=== PATIENT | female | born 1965 | race Caucasian/White ===

== ENCOUNTER 2025-03-26 08:31 | Inpatient (IN) | payer OTHER, SELFPAY ==
[2025-03-26 08:49] VITALS: BP 142/92
[2025-03-26 10:40] LABS: Hematocrit 40.1 % (37.0-47.0); Hemoglobin 13.0 g/dL (12.0-16.0); Mean Corp Hgb Conc. 32.4 g/dL (33.0-37.0); Mean Corpuscular Volume 92.0 fL (81.0-99.0); Nucleated Red Blood Cells % 0 %; Platelet Count 155 10^3/uL (130-400); Red Cell Dist. Width 12.6 % (11.5-14.5)
[2025-03-26 10:49] LABS: ALT (SGPT) 34 U/L (0-35); AST (SGOT) 31 U/L (14-36); Albumin 4.5 g/dl (3.5-5.0); Alkaline Phosphatase 48 U/L (38-126); Blood Urea Nitrogen 15 mg/dl (7-17); Calcium 9.5 mg/dl (8.4-10.2); Carbon Dioxide 25 mmol/L (22-30); Chloride 104 mmol/L (98-107); Glucose 217 mg/dl (70-99); Magnesium 1.7 mg/dl (1.6-2.3); Potassium 4.5 mmol/L (3.5-5.1); Sodium 139 mmol/L (135-145); Total Protein 8.0 g/dl (6.3-8.2); eGFR > 60.00
[2025-03-26 10:55] VITALS: BP 137/83
--- NOTE | 2025-03-26 11:10 | W.CARD.TIKOS ---
Initiate Tikosyn
-
I verify that the patient has not taken any verapamil (Isoptin/Calan), ketoconazole (Nizoral), cimetidine (Tagamet), trimethoprim (Trimpex), trimethoprim/sulfamethoxazole (Bactrim), megesterol (Megace), prochlorperazine (Compazine),
hydrochlorothiazide (HCTZ), dolutegravir (Tivicay) or any Class I or Class III anti-arrhythmic within the last three days
AND
I verify that the patient has not taken amiodarone within the last THREE months, or that the patient's amiodarone plasma concentration is <0.3 mcg/mL.
Creatinine 0.5 mg/dL (0.6-1.0) L 03/26/25 10:31
CrCl 236
I have assessed the baseline QTc interval (using QT for heart rate less than 60 bpm) and deemed the patient is appropriate for Dofetilide therapy. I understand that Tikosyn is contraindicated if the QTc is >440msec (500msec in patients with
ventricular conduction abnormalities).
Baseline QTc (in msec): 464
QTc interval is greater than 440msec without conduction abnormality OR greater than 500msec with a conduction abnormality, but acceptable to proceed per Cardiology attending.
Reason for Administration with Prolonged QTc: Other Atrial Arrhythmia
Ordering Physician: Ronnie Parks
--- NOTE | 2025-03-26 11:12 | W.PN.CARDCBS ---
Addendum entered and electronically signed by El Cerrato MD 03/26/25 19:16:
Pleasant 59-year-old woman admitted for dofetilide loading for persistent atrial fibrillation. She failed cardioversion in August 2024
PMH: Type 2 diabetes, hypertension, obesity, mild to moderate mitral regurgitation
Outpatient meds: Apixaban 5 mg twice daily, atorvastatin 20 mg a day, Zyrtec, doxycycline, glipizide, lisinopril, metformin, metoprolol ER 50 twice daily, semaglutide, Hydrochlorothiazide and diltiazem stopped prior to admission
Rest of history as per outpatient record and as below
137/83, pulse 113 respiratory rate 18, head neck exam unremarkable, lungs clear, irregular rate and rhythm without obvious murmurs JVD okay abdomen obese extremities with chronic edema
Hemoglobin 13, BUN and creatinine 15 and 0.5
ECG: QTc 491, underlying atrial fibrillation/flutter
Impression:
Persistent atrial fibrillation
Hypertension
Obesity
Mild to moderate mitral regurgitation
Other diagnoses, findings, recommendations as below. Reviewed in detail and agree, unless otherwise specified.
Plan:
Proceed with dofetilide loading, 500 mcg twice daily
Rate somewhat increased but acceptable off diltiazem and on metoprolol. May need to uptitrate metoprolol.
May need furosemide for edema, hydrochlorothiazide has been stopped
Cardioversion Wednesday if atrial fibrillation persists
Original Note:
Today's Communication / Plan
-
Start Tikosyn 500 mcg every 12 hours
Lasix can be started if needed for LE edema, outpatient dose of HCTZ was stopped
Impression / Plan
-
PCP: Rebecca Doherty NP
Cardiology: Dr. Little
EP Dr. Parks
Impression:
Direct admission for Tikosyn loading for persistent A-fib
Persistent A-fib
s/p unsuccessful CV 08/30/24
Chronic Eliquis OAC
DM 2
HTN
Echo 09/12/2024: EF 55 to 60%, normal RV size and function, mild to moderate MR
Plan:
-Patient presents to the hospital today for direct admission for Tikosyn loading. Patient was seen in the cardiology office on 03/16/2025 as a follow-up and Tikosyn loading was recommended after her medical insurance company denied recommended PVI.
Appeared to peer review process was conducted with the patient's physician team at the insurance company and they still denied PVI and so patient solace in the office on 03/16/2025 to discuss alternatives and ultimately decided on direct admission
with Tikosyn loading. Patient remains in A-fib.
-ECG reviewed by me is A-fib with HR 96. Telemetry also reviewed by me as A-fib with overall controlled ventricular response but sometimes up to 113 bpm.
-QTc 464 ms in the setting of A-fib. CrCl calculated by me 236.
-Start Tikosyn 500 mcg every 12 hours, dosing schedule ordered by me
-Patient denies any missed doses of her usual Eliquis 5 mg BID (age 59, Cre 0.5)
-Last dose of HCTZ was 03/24/2025. HCTZ has been stopped with the initiation of Tikosyn. HCTZ was used in part to help with LE edema and patient thought that when HCTZ was stopped and diltiazem was started by Dr. Little in the office back on
01/30/2025 that there was an increase in LE edema, patient now feels that since Cardizem CD was stopped on 03/16/2025 that the edema has improved. Reviewed with patient that we could consider initiation of low-dose Lasix if needed to help with LE
edema.
-Initial BP 142/92 and then improved a bit to 137/83. Will monitor and otherwise her usual doses of lisinopril 20 mg daily and Toprol-XL 50 mg BID have been ordered
-CV on Wednesday morning if patient fails to spontaneously convert with Tikosyn loading
Progress Note - Professor Of Astronomy
Subjective
Date of Service: March 26, 2025
She feels well, denies palpitations
Objective
Labs:
03/26/25 10:31
03/26/25 10:31
Labs
Hgb 13.0 g/dL (12.0-16.0) 03/26/25 10:31
Hct 40.1 % (37.0-47.0) 03/26/25 10:31
Plt Count 155 10^3/uL (130-400) 03/26/25 10:31
Sodium 139 mmol/L (135-145) 03/26/25 10:31
Potassium 4.5 mmol/L (3.5-5.1) 03/26/25 10:31
BUN 15 mg/dl (7-17) 03/26/25 10:31
Creatinine 0.5 mg/dL (0.6-1.0) L 03/26/25 10:31
Glucose 217 mg/dl (70-99) H 03/26/25 10:31
Vital Signs and I&O:
Vital Signs
Temp Pulse Resp BP Pulse Ox
97.8 F 111 20 142/92 99
03/26/25 10:55 03/26/25 10:45 03/26/25 10:55 03/26/25 08:49 03/26/25 10:55
Vital Signs
Temp Pulse Resp BP Pulse Ox
97.8 F 111 20 142/92 99
03/26/25 10:55 03/26/25 10:45 03/26/25 10:55 03/26/25 08:49 03/26/25 10:55
Physical Exam
Physical Exam
GEN: NAD, AAO x 3
HEENT: EOMI, MMM
LUNGS: RA. CTA B/L, no wheeze
CV: A-fib on telemetry. Irreg, S1/S2, no murmur
ABD: ND
EXT: +1 B/L LE edema
NEURO: Gross non-focal
SKIN: No rash
--- NOTE | 2025-03-26 11:28 | CM ---
Addendum entered by Deepa Reyes 03/26/25 14:27:
Telephone call to [facility], to check on co-pay for Dofetilide 500 mcg bid. Her co-pay for thirty day supply via retail is $30.00 and for a ninety day supply via mail order is $60.00. Telephone call to [facility] and they do have Dofetilide 500
mcg in stock.
Original Note:
Reviewed cjart. Met with Mrs. House to review discharge plans. She states prior to admission she resides with her spouse and daughter in a two story home with two steps to enter. She states she has a full flight of steps to get to bedroom/full
bathroom/ She states she has a powder room on the first floor. She state she has a powder room on the first floor. She states prior to admission she was independent with ambulation and adls. She states she does not have any DME in the home. She
state she has a prescription plan with [facility] and uses ail order and [facility] when needed. Will check co-pay for Dofetilide with her insurance. [facility]. She will need a script for three days
to go to [facility] so a three day supply of Dofetilide can go home with her. Medical work-up in progress. The discharge plan is to return home with her spouse and daughter when medically stable.
[2025-03-26] MEDS: TIKOSYN 500 MCG PO ×2 (12:39→23:16)
[2025-03-26 13:30] LABS: Glucose - Point of Care 147 mg/dl (70-99)
[2025-03-26 15:36] VITALS: BP 141/87
[2025-03-26 17:20] LABS: Glucose - Point of Care 161 mg/dl (70-99)
[2025-03-26] MEDS: LIPITOR 20 MG PO (17:58)
[2025-03-26] MEDS: GLUCOTROL 10 MG PO (17:58)
[2025-03-26] MEDS: GLUCOPHAGE 500 MG PO (17:58)
[2025-03-26 19:14] VITALS: BP 151/76
--- NOTE | 2025-03-26 19:43 | PTCARENOTE ---
~[id number]: patient direct admit to unit for tikosyn dosing. Admission charting completed and patient oriented to rom and call paredes system. AOx4, Afib 100s on tele up to 150s with ambulation, SPB 130s, RA satting 99%. EKG obtained, baseline QTC
464. Melisa Chavez PA-C in to see patient, tikosyn dose ordered around 11, request pharmacy to verify dose so it could be given. Around 1200, dose still not verified. Patient denies pain at this time. PIV inserted and bloodwork drawn and sent to lab.
Patient independent in room. All needs met at this time, call paredes within reach.
~7075-4332: Patient independent in room. remains Afib 80s-90s at this time. EKG obtained post first tikosyn dose, QTC 491. All needs met at this time, call paredes within reach.
~6132-9327: Patient independent in room. VSS. All needs met at this time, call paredes within reach. handoff report given to nightshift RN.
[2025-03-26] MEDS: TOPROL XL 50 MG PO (20:07)
[2025-03-26] MEDS: VIBRAMYCIN 50 MG PO (20:07)
[2025-03-26] MEDS: ELIQUIS 5 MG PO (20:07)
[2025-03-26 22:41] LABS: Glucose - Point of Care 118 mg/dl (70-99)
[2025-03-26 22:42] VITALS: BP 111/80
--- NOTE | 2025-03-26 23:55 | PTCARENOTE ---
Received patient at change of shift. Afib on the monitor, HR in the 90s. Tikosyn administered, EKG ordered as per protocol. No complaints from pt at this time, call paredes within reach.
[2025-03-27] VITALS (8 sets, daily range): BP systolic 105–130; BP diastolic 73–98
[2025-03-27 02:15] LABS: Hematocrit 35.9 % (37.0-47.0); Hemoglobin 12.1 g/dL (12.0-16.0); Mean Corp Hgb Conc. 33.7 g/dL (33.0-37.0); Mean Corpuscular Volume 86.5 fL (81.0-99.0); Platelet Count 150 10^3/uL (130-400); Red Cell Dist. Width 12.9 % (11.5-14.5)
[2025-03-27 02:38] LABS: Blood Urea Nitrogen 11 mg/dl (7-17); Calcium 9.2 mg/dl (8.4-10.2); Carbon Dioxide 25 mmol/L (22-30); Chloride 104 mmol/L (98-107); Estimated Creatinine Clearance > 125 ml/min; Glucose 114 mg/dl (70-99); Potassium 4.1 mmol/L (3.5-5.1); Sodium 139 mmol/L (135-145); eGFR > 60.00
[2025-03-27 08:26] LABS: Glucose - Point of Care 161 mg/dl (70-99)
[2025-03-27] MEDS: VIBRAMYCIN 50 MG PO ×2 (09:08→19:40)
[2025-03-27] MEDS: TOPROL XL 50 MG PO ×2 (09:08→19:40)
[2025-03-27] MEDS: GLUCOPHAGE 500 MG PO ×2 (09:08→18:15)
[2025-03-27] MEDS: ELIQUIS 5 MG PO ×2 (09:08→19:40)
[2025-03-27] MEDS: GLUCOTROL 10 MG PO ×2 (09:08→18:15)
[2025-03-27] MEDS: ZESTRIL 20 MG PO (09:08)
[2025-03-27] MEDS: NOVOLOG FLEXPEN-MODERATE RESISTANCE 1 UNITS SC ×2 (09:09→12:27)
--- NOTE | 2025-03-27 09:20 | W.PN.CARDCBS ---
Today's Communication / Plan
-
Remains in AFib, cont to monitor QTc
Initial Tikosyn dose was 500 mcg BID
Cont Eliquis 5 mg BID (age 59, Cre 0.5)
Last dose of HCTZ was 03/24/2025. HCTZ has been stopped with the initiation of Tikosyn. HCTZ was used in part to help with LE edema and but felt that since Cardizem CD was stopped on 03/16/2025 that the edema has improved.
Bp stable, cont Lisinopril 20 mg daily and Toprol-XL 50 mg BID
Pt is for cv Mar 28Wed AM if fails to convert
Likely d/c Mar 28 after 5th dose.
Impression / Plan
-
.
PCP: Rebecca Doherty NP
Cardiology: Dr. Little
EP Dr. Parks
Impression:
Direct admission for Tikosyn loading for persistent A-fib
Persistent A-fib
s/p unsuccessful CV 08/30/24
Chronic Eliquis OAC
DM 2
HTN
Echo 09/12/2024: EF 55 to 60%, normal RV size and function, mild to moderate MR
Plan:
HPI: Patient presents to the hospital today for direct admission for Tikosyn loading. Patient was seen in the cardiology office on 03/16/2025 as a follow-up and Tikosyn loading was recommended after her medical insurance company denied recommended
PVI. Appeared to peer review process was conducted with the patient's physician team at the insurance company and they still denied PVI and so patient solace in the office on 03/16/2025 to discuss alternatives and ultimately decided on direct
admission with Tikosyn loading. Patient remains in A-fib.
Remains in AFib, cont to monitor QTc
Initial Tikosyn dose was 500 mcg BID
Cont Eliquis 5 mg BID (age 59, Cre 0.5)
Last dose of HCTZ was 03/24/2025. HCTZ has been stopped with the initiation of Tikosyn. HCTZ was used in part to help with LE edema and but felt that since Cardizem CD was stopped on 03/16/2025 that the edema has improved.
Bp stable, cont Lisinopril 20 mg daily and Toprol-XL 50 mg BID
Pt is for cv Mar 28 Wed AM if fails to convert
Likely d/c Mar 28 after 5th dose.
Discussed with nursing.
Progress Note - Evidence Specialist
Subjective
Date of Service: March 27, 2025
Pt seen and examined. No complaints. No chest pain or shortness of breath.
Objective
Labs:
03/27/25 01:46
03/27/25 01:46
Labs
Hgb 12.1 g/dL (12.0-16.0) 03/27/25 01:46
Hct 35.9 % (37.0-47.0) L 03/27/25 01:46
Plt Count 150 10^3/uL (130-400) 03/27/25 01:46
Sodium 139 mmol/L (135-145) 03/27/25 01:46
Potassium 4.1 mmol/L (3.5-5.1) 03/27/25 01:46
BUN 11 mg/dl (7-17) 03/27/25 01:46
Creatinine 0.5 mg/dL (0.6-1.0) L 03/27/25 01:46
Glucose 114 mg/dl (70-99) H 03/27/25 01:46
Vital Signs and I&O:
Vital Signs
Temp Pulse Resp BP Pulse Ox
97.8 F 86 12 114/98 98
03/27/25 01:49 03/27/25 09:08 03/27/25 09:04 03/27/25 09:08 03/27/25 01:49
Vital Signs
Temp Pulse Resp BP Pulse Ox
97.8 F 86 12 114/98 98
03/27/25 01:49 03/27/25 09:08 03/27/25 09:04 03/27/25 09:08 03/27/25 01:49
Physical Exam
Physical Exam
General: No acute distress, AAOX3
Neck: Negative JVD
Heart: Irregularly irregular, Negative S3 positive S1/S2, Negative S4, No murmur
Lungs: CTA b/l, negative wheezes/rales/rhonchi
Abd: Morbid obesity, positive BS, NT/ND, neg rebound/rigidity/guarding
Ext: Negative cyanosis/clubbing/edema
Neuro: nonfocal
--- NOTE | 2025-03-27 10:13 | CM ---
Reviewed chart. Mwt with Mrs. House to review discharge plans. She states she feel about the same. We reviewed her co-pay for Dofetilide. She is agreeable to the co-pay. [facility]. Prior to
admission she resides with her spouse and daughter in a two story home with two steps to enter. She has a full flight of steps to get to bedroom/full bathroom/ She has a powder room on the first floor. . Prior to admission she was independent
with ambulation and adls. She does not have any DME in the home. She has a prescription plan with [facility] and uses mail order and [facility] when needed. She will need a script for three days to go to [facility] so a three day supply of
Dofetilide can go home with her. Medical work-up in progress. The discharge plan is to return home with her spouse and daughter when medically stable.
[2025-03-27] MEDS: TIKOSYN 500 MCG PO ×2 (10:20→21:04)
[2025-03-27 11:40] LABS: Glucose - Point of Care 171 mg/dl (70-99)
[2025-03-27 18:14] LABS: Glucose - Point of Care 115 mg/dl (70-99)
[2025-03-27] MEDS: NOVOLOG FLEXPEN-MODERATE RESISTANCE SC (18:15)
[2025-03-27] MEDS: LIPITOR 20 MG PO (18:15)
--- NOTE | 2025-03-27 19:12 | PTCARENOTE ---
~[id number]: Handoff report received from nightshift RN. Pt AOx4, Afib 100s-130s, SBP 120s, RA satting 99%. +2/2 pulses, +1 edema LLE, trace edema RLE. Laceration R thumb POA recovered with a bandaid. Patient independent in the room. Dose #3 tikosyn
given per order, EKG ordered per protocol. All needs met at this time, call paredes within reach.
~[id number]: EKG obtained post Tikosyn dose, QTC 483.
~4875-7820: Patient independent in room. Does not c/o pain at this time. VSS. All needs met, call paredes within reach. Handoff given to nightshift RN.
[2025-03-27 21:09] LABS: Glucose - Point of Care 145 mg/dl (70-99)
--- NOTE | 2025-03-27 23:12 | PTCARENOTE ---
Received patient at change of shift. Afib on the monitor, HR in the 90s. Tikosyn administered and EKG obtained as per order. No complaints from pt at this time, call paredes within reach.
[2025-03-28 02:24] VITALS: BP 118/71
[2025-03-28 03:46] LABS: Blood Urea Nitrogen 12 mg/dl (7-17); Calcium 9.2 mg/dl (8.4-10.2); Carbon Dioxide 25 mmol/L (22-30); Chloride 105 mmol/L (98-107); Estimated Creatinine Clearance > 125 ml/min; Glucose 119 mg/dl (70-99); Potassium 4.3 mmol/L (3.5-5.1); Sodium 139 mmol/L (135-145); eGFR > 60.00
[2025-03-28 07:41] VITALS: BP 115/87
[2025-03-28 08:42] LABS: Glucose - Point of Care 180 mg/dl (70-99)
[2025-03-28] MEDS: NOVOLOG FLEXPEN-MODERATE RESISTANCE 1 UNITS SC (08:42)
[2025-03-28] MEDS: ELIQUIS 5 MG PO (08:59)
[2025-03-28] MEDS: ZESTRIL 20 MG PO (09:00)
[2025-03-28] MEDS: TOPROL XL 50 MG PO (09:00)
[2025-03-28] MEDS: VIBRAMYCIN PO (09:01)
[2025-03-28] MEDS: GLUCOPHAGE PO (09:01)
[2025-03-28] MEDS: GLUCOTROL PO (09:01)
[2025-03-28] MEDS: TIKOSYN 500 MCG PO (09:03)
--- NOTE | 2025-03-28 09:25 | PTCARENOTE ---
pt left for feed mill lab technician. Report given. Family updated.
--- NOTE | 2025-03-28 09:44 | W.PN.CARDCBS ---
Today's Communication / Plan
-
Cont Tikosyn
cv today
dc later today
Impression / Plan
-
.
PCP: Rebecca Doherty NP
Cardiology: Dr. Little
EP Dr. Parks
Impression:
Direct admission for Tikosyn loading for persistent A-fib
Persistent A-fib
s/p unsuccessful CV 08/30/24
Chronic Eliquis OAC
DM 2
HTN
Echo 09/12/2024: EF 55 to 60%, normal RV size and function, mild to moderate MR
Plan:
HPI: Patient presents to the hospital today for direct admission for Tikosyn loading. Patient was seen in the cardiology office on 03/16/2025 as a follow-up and Tikosyn loading was recommended after her medical insurance company denied recommended
PVI. Appeared to peer review process was conducted with the patient's physician team at the insurance company and they still denied PVI and so patient solace in the office on 03/16/2025 to discuss alternatives and ultimately decided on direct
admission with Tikosyn loading. Patient remains in A-fib.
Remains in AFib, cont to monitor QTc, for cardioversion today.
Cont Tikosyn at 500 mcg BID
Cont Eliquis 5 mg BID (age 59, Cre 0.5)
Last dose of HCTZ was 03/24/2025. HCTZ has been stopped with the initiation of Tikosyn. HCTZ was used in part to help with LE edema and but felt that since Cardizem CD was stopped on 03/16/2025 that the edema has improved.
Bp stable, cont Lisinopril 20 mg daily and Toprol-XL 50 mg BID
Likely d/c today
Progress Note - Money Laundering Investigator
Subjective
Date of Service: March 28, 2025
Pt seen and examined. No complaints. No chest pain or shortness of breath.
Objective
Labs:
03/27/25 01:46
03/28/25 02:28
Labs
Hgb 12.1 g/dL (12.0-16.0) 03/27/25 01:46
Hct 35.9 % (37.0-47.0) L 03/27/25 01:46
Plt Count 150 10^3/uL (130-400) 03/27/25 01:46
Sodium 139 mmol/L (135-145) 03/28/25 02:28
Potassium 4.3 mmol/L (3.5-5.1) 03/28/25 02:28
BUN 12 mg/dl (7-17) 03/28/25 02:28
Creatinine 0.5 mg/dL (0.6-1.0) L 03/28/25 02:28
Glucose 119 mg/dl (70-99) H 03/28/25 02:28
Vital Signs and I&O:
Vital Signs
Temp Pulse Resp BP Pulse Ox
97.6 F 76 20 115/87 98
03/28/25 07:41 03/28/25 09:00 03/28/25 07:41 03/28/25 09:00 03/28/25 07:41
Vital Signs
Temp Pulse Resp BP Pulse Ox
97.6 F 76 20 115/87 98
03/28/25 07:41 03/28/25 09:00 03/28/25 07:41 03/28/25 09:00 03/28/25 07:41
Physical Exam
Physical Exam
General: No acute distress, AAOX3
Neck: Negative JVD
Heart: Irregularly irregular, Negative S3 positive S1/S2, Negative S4, No murmur
Lungs: CTA b/l, negative wheezes/rales/rhonchi
Abd: Positive BS, NT/ND, neg rebound/rigidity/guarding
Ext: Negative cyanosis/clubbing/edema
Neuro: nonfocal
--- NOTE | 2025-03-28 10:09 | W.PN.CARDCBS ---
Today's Communication / Plan
-
5th dose of Tikosyn 500 mcg given this morning and patient taken for planned CV
Likely discharge to home this afternoon if QTc is stable and ECG following mandaen of SR
Impression / Plan
-
.
PCP: Rebecca Doherty NP
Cardiology: Dr. Little
EP Dr. Parks
Impression:
Direct admission for Tikosyn loading for persistent A-fib
Persistent A-fib
s/p unsuccessful CV 08/30/24
Chronic Eliquis OAC
DM 2
HTN
Echo 09/12/2024: EF 55 to 60%, normal RV size and function, mild to moderate MR
Plan:
-QTc stable at 487 ms following the 4th dose of Tikosyn 500 mcg that was given on Wednesday night. 5th dose of Tikosyn given Wednesday and patient remains in A-fib, plan is for CV Wednesday.
-Recheck ECG following mandaen of SR and if QTc is stable we will plan on discharge to home with Tikosyn 500 mcg every 12 hours
-Outpatient dose of Toprol XL 50 mg BID has been continued
-Outpatient dose of Cardizem CD was stopped on 03/16/2025 and edema has improved.
-Outpatient dose of HCTZ was also stopped on 03/16/2025 and no traumatic reaccumulation of edema, but we did discuss Lasix could be added. Patient does not feel she needs Lasix at this time.
-Patient denies any missed doses of her usual Eliquis 5 mg BID (age 59, Cre 0.5)
-Anticipated discharge to home 03/28/2025
HPI: Patient presents to the hospital today for direct admission for Tikosyn loading. Patient was seen in the cardiology office on 03/16/2025 as a follow-up and Tikosyn loading was recommended after her medical insurance company denied recommended
PVI. Appeared to peer review process was conducted with the patient's physician team at the insurance company and they still denied PVI and so patient solace in the office on 03/16/2025 to discuss alternatives and ultimately decided on direct
admission with Tikosyn loading. Patient remains in A-fib.
Progress Note - Regulatory Compliance Director
Subjective
Date of Service: March 28, 2025
She feels well, she has had CV before
Objective
Labs:
03/27/25 01:46
03/28/25 02:28
Labs
Hgb 12.1 g/dL (12.0-16.0) 03/27/25 01:46
Hct 35.9 % (37.0-47.0) L 03/27/25 01:46
Plt Count 150 10^3/uL (130-400) 03/27/25 01:46
Sodium 139 mmol/L (135-145) 03/28/25 02:28
Potassium 4.3 mmol/L (3.5-5.1) 03/28/25 02:28
BUN 12 mg/dl (7-17) 03/28/25 02:28
Creatinine 0.5 mg/dL (0.6-1.0) L 03/28/25 02:28
Glucose 119 mg/dl (70-99) H 03/28/25 02:28
Vital Signs and I&O:
Vital Signs
Temp Pulse Resp BP Pulse Ox
97.6 F 76 20 115/87 98
03/28/25 07:41 03/28/25 09:00 03/28/25 07:41 03/28/25 09:00 03/28/25 07:41
Vital Signs
Temp Pulse Resp BP Pulse Ox
97.6 F 76 20 115/87 98
03/28/25 07:41 03/28/25 09:00 03/28/25 07:41 03/28/25 09:00 03/28/25 07:41
Physical Exam
Physical Exam
GEN: NAD, AAO x 3
LUNGS: RA. No wheeze
CV: A-fib on telemetry. Irreg, S1/S2, no murmur
--- NOTE | 2025-03-28 11:08 | ITS.CL.CARDI ---
Electronics Scale Tester - Cardioversion
Cardioversion
Procedure Report:
Procedure: 03/28/25.
Procedure: Cardioversion.
Indication: Symptomatic atrial fibrillation.
Performing Physician: Viry Kumar MD
Technique: The patient was brought to the holding area. Signed informed consent was obtained. A time out was called and performed. The patient was sedated by a member of the anesthesia service. Anticoagulation status was reviewed and was
appropriate. R-2 pads were placed anteriorly and posteriorly. A 200 J synchronized biphasic shock restored normal sinus rhythm without significant bradycardia. There were no complications.
Conclusion: Uncomplicated cardioversion from atrial fibrillation to sinus rhythm.
Recommendation: Routine post cardioversion care. Continue retirement anticoagulation.
cc: Parks
[2025-03-28 11:46] VITALS: BP 115/60
--- NOTE | 2025-03-28 11:54 | CM ---
Reviewed chart. Met with and Mrs. House to review discharge plans. She states she is feeling better and maybe able to go home soon. Prior to admission she resides with her spouse and daughter in a two story home with two steps to enter. She
has a full flight of steps to get to bedroom/full bathroom/ She has a powder room on the first floor. . Prior to admission she was independent with ambulation and adls. She does not have any DME in the home. She has a prescription plan with [facility] and uses mail order and [facility] when needed. She will need a script for three days to go to [facility] so a three day supply of Dofetilide can go home with her. Medical work-up in progress. The discharge plan is to return home with her
spouse and daughter when medically stable.
[2025-03-28] MEDS: MAGNESIUM OXIDE 400 MG PO (11:59)
[2025-03-28 12:00] VITALS: BP 116/63
[2025-03-28 12:15] VITALS: BP 112/65
[2025-03-28 12:44] LABS: Glucose - Point of Care 143 mg/dl (70-99)
[2025-03-28] MEDS: NOVOLOG FLEXPEN-MODERATE RESISTANCE SC (12:49)
--- NOTE | 2025-03-28 13:53 | PTCARENOTE ---
Pt is AOx3, no complaints of pain or discomfort. SR on tele monitor, VSS. Plan for discharge later today. Independent OOB. Call paredes within reach.
--- NOTE | 2025-03-28 14:23 | W.DS.TRANS ---
DC Summary - Chimney Builder Helper
-
Discharge Instructions:
Sleep Apnea Risk Intermediate
Discharge Diagnosis/Procedures Tikosyn loading for persistent atrial
fibrillation
Diet Diabetic, Carb Controlled
Activity As tolerated
Driving Restrictions No driving for 24 hours
Bathing Restrictions None
Instructions:
Stand-Alone Forms: DC Instructions- Cath/EP Lab
Changes to Home Medications: Yes
Discharge Medications:
DC Medications w/original date entered in [employer]
apixaban 5 mg tablet (Eliquis) 5 mg PO BID 11/20/24
atorvastatin 20 mg tablet 20 mg PO DAILY 11/20/24
cartilage 40 mg-collagen II-boron 5 mg-hyaluronate sod 3.3 mg tablet (Move Free Ultra Triple Action (boron)) 1 tab PO DAILY 11/20/24
cetirizine 10 mg tablet (Zyrtec) 10 mg PO DAILY PRN allergies 11/20/24
cholecalciferol (vitamin D3) 125 mcg (5,000 unit) tablet (Vitamin D3) 125 mcg PO DAILY 11/20/24
cholecalciferol (vitamin D3) 25 mcg (1,000 unit) tablet (Vitamin D3) 25 mcg PO DAILY 11/20/24
doxycycline hyclate 20 mg tablet 20 mg PO BID 11/20/24
glipizide 10 mg tablet 10 mg PO BID 11/20/24
lisinopril 20 mg tablet 20 mg PO DAILY 11/20/24
metformin 1,000 mg tablet 1,000 mg PO BID 11/20/24
metoprolol succinate 50 mg tablet,extended release 24 hr 50 mg PO BID 11/20/24
omega 6-gtd-nnz-fish oil 900 mg-1,400 mg capsule,delayed release (Fish Oil) 1 cap PO DAILY 11/20/24
semaglutide 2 mg/dose (8 mg/3 mL) subcutaneous pen injector (Ozempic) 2 mg SC QWEEK 11/20/24
turmeric 400 mg capsule 400 mg PO DAILY 11/20/24
fluconazole 100 mg tablet (Diflucan) 100 mg PO DAILY easton #4 tabs 11/22/24
nystatin 100,000 unit/gram topical powder 1 applic topical QID candidal rash #30 grams 11/22/24
dofetilide 500 mcg capsule 500 mcg PO Q12 Arrhythmia #60 caps 03/28/25
Home Medication Changes
New to Tikosyn and magnesium
Cardizem CD and HCTZ have been stopped
Pending Results: No
[2025-03-28 15:10] VITALS: BP 124/77
== END 2025-03-28 15:32 | disposition home or self-care (01) | DRG 309 ==
LOC: IVU 08:31
PROVIDERS: Internal Medicine Cardiovascular Disease; Physician Assistant Medical; ADMITTING PHYSICIAN Internal Medicine Cardiovascular Disease; FAMILY PHYSICIAN Internal Medicine Cardiovascular Disease
PROC: 5A2204Z Restoration of Cardiac Rhythm, Single (ICD-10-PCS; 2025-03-28)
DX: I48.19 Other persistent atrial fibrillation (principal); Z68.41 Body mass index [BMI] 40.0-44.9, adult; Z79.01 Long term (current) use of anticoagulants; I10 Essential (primary) hypertension; E66.9 Obesity, unspecified; E11.9 Type 2 diabetes mellitus without complications
CPT/HCPCS: 80048; 80053; 82962; 83735; 85025; 85027; 92960; 93005